=== PATIENT | female | born 1955 | race Caucasian/White ===

== ENCOUNTER 2023-05-29 15:09 | Emergency (ER) | payer MEDICARE, OTHER ==
[~2023-05-29] VITALS: Ht 165.1 cm; Wt 81.8 kg
[2023-05-29] MEDS ORDERED: BOOSTRIX VACCINE (TETANUS/DIPHTH/ACEL. PERTUSSIS) 0.5ML SYR IM.IMMUN ONE (15:50)
[2023-05-29] MEDS ORDERED: BACITRACIN OINTMENT 30GM TUBE TOP ONE (16:35)
[2023-05-29] MEDS ORDERED: IBUP-1022 PO (17:13)
[2023-05-29 17:19] VITALS: BP 135/83; TEMP 96.4; O2SAT 99
== END 2023-05-29 17:24 | disposition home or self-care (01) ==
LOC: M ED 15:09
DX: S01.21XA Laceration without foreign body of nose, initial encounter (principal); S00.81XA Abrasion of other part of head, initial encounter; R51.9 Headache, unspecified; W01.198A Fall on same level from slipping, tripping and stumbling with subsequent striking against other object, initial encounter; I10 Essential (primary) hypertension; Z79.1 Long term (current) use of non-steroidal anti-inflammatories (NSAID); Z23 Encounter for immunization